=== PATIENT | female | born 1985 | race Caucasian/White ===

== ENCOUNTER 2017-01-29 11:12 | Emergency (ER) | payer MEDICAID, OTHER ==
[2017-01-29] MEDS ORDERED: ACETAMINOPHEN 325 MG TABLET PO ONE (12:18)
[2017-01-29] MEDS ORDERED: ACETAMINOPHEN 325 MG TABLET ONE (12:19)
--- NOTE | 2017-01-29 12:26 | ERNOTE ---
ENT HPI Date of Service: 01/29/17 Presenting Symptoms: other - ear pain Time Seen by Provider: 01/29/17 12:14 Source: patient Exam Limitations: no limitations - Immun/Allergies/Home Medications Immunizations: IMMUNIZATION HX History of Influenza Vaccine Yes Allergies/Adverse Reactions: Allergies Allergy/AdvReac Type Severity Reaction Status Date / Time No Known Allergies Allergy Verified 01/29/17 11:41 Home Medications: HOME MEDICATIONS Insulin Lispro [Humalog] 6 unit SQ HS 01/29/17 [Last Taken Unknown] Insulin Lispro [Humalog] 8 units SQ DAILY 01/29/17 [Last Taken Unknown] Insulin NPH Human Recom [Novolin N] 36 unit SQ HS 01/29/17 [Last Taken Unknown] - History of Present Illness Narrative: Pt. comes in with c/o B ear pain, sinus congestion and rhinorrhea with sore thraot for 2 days. Pt. is so she has not taken any medications or consulted her provider yet. Pt. denies any SOB, CP, cough, vomiting, diarrhea, fever, or recent injury. Pt. denies any alleviating factors or aggravating factors. Review of Systems - Review of Systems Constitutional: Present: no symptoms reported. Absent: recent illness, fever, chills, weakness, fatigue, malaise EYE: Present: no symptoms reported ENT: Present: ear pain, nose congestion, nasal drainage, sore throat Respiratory: Present: no symptoms reported. Absent: shortness of breath, cough , wheezing Cardiology: Present: no symptoms reported. Absent: chest pain, palpitations, edema Gastrointestinal/Abdominal: Present: nausea - mild in the morning only resolves by mid afternoon. Absent: vomiting, diarrhea Genitourinary: Present: no symptoms reported. Absent: frequency, decreased urinary output Musculoskeletal: Present: no symptoms reported. Absent: back pain, joint pain Skin: Present: no symptoms reported Neurological: Present: no symptoms reported. Absent: headache, dizziness/light- headedness, numbness, tingling All Other Systems: All systems neg except as marked - Patient's Past Medical History Patient History - Medical: Diabetes Type 2 Insulin Dependent Patient History - Cardiac/Respiratory: No pertinent hx Patient History - Cancer: No Hx of Cancer Patient History - Surgical Procedures: T & A Patient History - Other: None - Social History Living Situations: home Psych History: No pertinent hx Alcohol Use: none Drug Use: none - Immunizations History of Influenza Vaccine: Yes Physical Exam - Physical Exam General Appearance: Present: wd/wn, alert, no apparent distress Head Exam: Present: normal inspection, no evidence of injury Eye Exam: Normal inspection: bilateral, PERRL: bilateral, EOMI: bilateral Ears, Nose, Throat: Present: nasal congestion, sinus pain/drainage - frontal, pharyngeal erythema - mild, tonsillar exudate - clear Neck: Present: normal inspection, nontender. Absent: lymphadenopathy (R), lymphadenopathy (L) Respiratory: Present: no respiratory distress, normal breath sounds, no accessory muscle use, chest nontender, lungs clear Cardiovascular/Chest: Present: regular rate, rhythm, no murmur, normal peripheral pulses Neurological Exam: Present: alert, oriented, normal mood/affect, no motor/ sensory deficits Skin Exam: Present: normal color, warm/dry. Absent: pallor, skin rash ED Progress - Vital Signs Patient's Vital Signs:: I have reviewed the patient's vital signs. Vital Signs: Vital Signs 01/29/17 11:28 Temperature 36.4 C L Pulse Rate 82 Respiratory 12 Rate Blood Pressure 131/73 O2 Sat by Pulse 98 Oximetry - Progress/Reassessment Chief Complaint: Earache Departure Clinical Impression: Upper respiratory infection Qualifiers: URI type: acute nasopharyngitis (common cold) Qualified Code(s): J00 - Acute nasopharyngitis [common cold] - Departure Disposition: Home self-care Condition: Good Instructions: Upper Respiratory Infection, Adult, [id number], Form - Excuse from Work, School, or Physical Activity Additional Instructions: Please follow up with your primary provider in 2-3 days if not improved. Please use saline rinse for sinus pain and drainage. May take Tylenol for pain.
[2017-01-29 12:56] VITALS: BP 128/72
== END 2017-01-29 12:57 | disposition home or self-care (01) ==
LOC: ER 11:12
DX: J00 Acute nasopharyngitis [common cold] (principal); E11.9 Type 2 diabetes mellitus without complications; Z79.4 Long term (current) use of insulin

== ENCOUNTER 2017-06-26 12:19 | Observation (INO) | payer OTHER ==
[2017-06-26] MEDS ORDERED: CALCIUM GLUCONATE 4.65 MEQ/10 ML VIAL IV PRN (12:25)
[2017-06-26] MEDS ORDERED: MAGNESIUM SULFATE IN WATER 50 ML, MAGNESIUM SULFATE IN WATER 50 ML IV ONE ×2 (12:25)
[2017-06-26] MEDS ORDERED: MAGNESIUM SULFATE IN WATER 1,000 ML IV SCH (12:30)
[2017-06-26] MEDS ORDERED: LABETALOL HCL 5 MG/ML VIAL IV ONE (12:54)
[2017-06-26 13:02] VITALS: BP 166/100
[2017-06-26] MEDS ORDERED: DEXTROSE 5%-LACTATED RINGERS 1,000 ML IV PRN ×2 (13:38→14:10)
== END 2017-06-26 13:30 | disposition short-term general hospital (02) ==
LOC: OB 12:19 → INTOOBSV 12:19
PROVIDERS: ADMIT Obstetrics & Gynecology; ATTEND Obstetrics & Gynecology
DX: O14.13 Severe pre-eclampsia, third trimester (principal); O24.113 Pre-existing type 2 diabetes mellitus, in pregnancy, third trimester; E66.01 Morbid (severe) obesity due to excess calories; Z68.34 Body mass index [BMI] 34.0-34.9, adult; Z87.891 Personal history of nicotine dependence; O98.813 Other maternal infectious and parasitic diseases complicating pregnancy, third trimester; B95.1 Streptococcus, group B, as the cause of diseases classified elsewhere; Z3A.35 35 weeks gestation of pregnancy; Z91.19 Patient's noncompliance with other medical treatment and regimen
CPT/HCPCS: 59025; G0378; G0379